=== PATIENT | male | born 1975 | race Caucasian/White ===

== ENCOUNTER 2019-03-23 01:13 | Emergency (ER) | payer MEDICAID ==
[~2019-03-23] VITALS: Ht 185.4 cm; Wt 134.0 kg
[2019-03-23 01:15] VITALS: BP 113/75
[2019-03-23] MEDS ORDERED: TETanus/Pertussis (Acell)/Diphther VAC/PF (Tdap-Adult) 0.5ml syringe IM ONE (01:35)
== END 2019-03-23 01:48 | disposition home or self-care (01) ==
LOC: ER 01:14
DX: S61.511A Laceration without foreign body of right wrist, initial encounter (principal); F10.129 Alcohol abuse with intoxication, unspecified; W22.8XXA Striking against or struck by other objects, initial encounter; Y93.89 Activity, other specified; Y92.89 Other specified places as the place of occurrence of the external cause; Y99.8 Other external cause status; Y90.9 Presence of alcohol in blood, level not specified
CPT/HCPCS: 12001; 99283